=== PATIENT | female | born 1970 | race American Indian/Alaskan Native ===

== ENCOUNTER 2020-12-19 03:35 | Emergency (ER) | payer BC ==
[2020-12-19 03:46] VITALS: BP 151/91
[2020-12-19] MEDS ORDERED: KETOROLAC 60 MG/2 ML INJ IM ONE (04:18)
[2020-12-19] MEDS ORDERED: oxyCODONE /ACETAMINOPHEN 5-325MG TAB PO ONE (04:18)
--- NOTE | 2020-12-19 04:49 | XRay Report ---
LUMBAR SPINE 2 VIEWS INDICATION: Right lower back pain with radiculopathy. No known injury. COMPARISON: No relevant prior imaging study available. FINDINGS: VERTEBRAE: No acute fracture. Normal alignment. DISC SPACES: Multilevel mild discogenic degenerative changes are present. FACET JOINTS: There is bilateral facet hypertrophy at L4-L5. No other significant abnormality. SOFT TISSUES: No significant abnormality. ADDITIONAL FINDINGS: No additional significant findings. IMPRESSION: 1. No acute findings. 2. Mild lumbar spondylosis. Signer Name: Dawit Cantu MD Signed: 12/19/2020 4:45 AM Workstation Name: [id number]
--- NOTE | 2020-12-19 05:03 | Emergency Department Report ---
ED Back Pain/Injury HPI - General Chief Complaint: Back Pain/Injury Stated Complaint: RT LEG PAIN;BACK PAIN Time Seen by Provider: 12/19/20 04:16 Source: patient, EMS Limitations: No Limitations - History of Present Illness Initial Comments: Patient will return from a trip mention she developed some discomfort while she was on the trip doing some walking excessive rides noting a sharp pain that started in her back and radiated to her buttocks. Since returning to to [place] the pain has grown more stiff and she is further down her leg and increasing in intensity history she decided to come to emergency department to have it evaluated MD Complaint: back pain -: Gradual, days(s) (5) Similar Symptoms Previously: No Severity: mild, moderate Quality: sharp, stabbing Consistency: constant Improves With: immobilization Worsens With: movement, sitting upright Associated Symptoms: denies: chest pain, difficulty walking, cough, difficulty urinating, incontinence, fever/chills, constipation, abdominal pain, seizure, shortness of breath, syncope - Related Data Previous Rx's Medication Instructions Recorded Last Taken Type Ketorolac [Toradol] 10 mg PO Q6H PRN #14 tablet 12/19/20 Unknown Rx methOCARBAMOL [Robaxin TAB] 750 mg PO Q8H #14 tablet 12/19/20 Unknown Rx Allergies Allergy/AdvReac Type Severity Reaction Status Date / Time No Known Allergies Allergy Unverified 12/19/20 03:38 ED Review of Systems ROS: Stated complaint: RT LEG PAIN;BACK PAIN Other details as noted in HPI Comment: All other systems reviewed and negative ED Past Medical Hx - Past Medical History Previous Medical History?: No - Social History Smoking Status: Current Every Day Smoker - Medications Home Medications: Home Medications Medication Instructions Recorded Confirmed Last Taken Type Ketorolac [Toradol] 10 mg PO Q6H PRN #14 tablet 12/19/20 Unknown Rx methOCARBAMOL [Robaxin TAB] 750 mg PO Q8H #14 tablet 12/19/20 Unknown Rx ED Physical Exam - General Limitations: No Limitations General appearance: alert, in no apparent distress - Head Head exam: Present: atraumatic, normocephalic - Eye Eye exam: Present: normal appearance - ENT ENT exam: Present: mucous membranes moist - Neck Neck exam: Present: normal inspection - Respiratory Respiratory exam: Present: normal lung sounds bilaterally. Absent: respiratory distress - Cardiovascular Cardiovascular Exam: Present: regular rate, normal rhythm. Absent: systolic murmur, diastolic murmur, rubs, gallop - GI/Abdominal GI/Abdominal exam: Present: soft, normal bowel sounds - Extremities Exam Extremities exam: Present: normal inspection - Back Exam Back exam: Present: normal inspection, paraspinal tenderness, vertebral tenderness. Absent: tenderness (Tender to her right sacroiliac joint with palpation. Seated straight leg raise is is positive as well.), CVA tenderness (R), CVA tenderness (L) - Neurological Exam Neurological exam: Present: alert, oriented X3 - Psychiatric Psychiatric exam: Present: normal affect, normal mood - Skin Skin exam: Present: warm, dry, intact, normal color. Absent: rash ED Course Vital Signs 12/19/20 03:42 Temperature 98.4 F Pulse Rate 93 H Respiratory 18 Rate Blood Pressure 151/91 O2 Sat by Pulse 99 Oximetry ED Medical Decision Making - Radiology Data Radiology results: report reviewed [address] [place] [address] XRay Report Signed Patient: TIA HERNANDEZ MR#: [id number] : 1970 Acct:[id number] Age/Sex: 50 / F ADM Date: 12/19/20 Loc: ED Attending Dr: Ordering Physician: MARTINEZ RIZZO Date of Service: 12/19/20 Procedure(s): XR spine lumbosacral 2-3V Accession Number(s): [id number] cc: MARTINEZ RIZZO Fluoro Time In Minutes: LUMBAR SPINE 2 VIEWS INDICATION: Right lower back pain with radiculopathy. No known injury. COMPARISON: No relevant prior imaging study available. FINDINGS: VERTEBRAE: No acute fracture. Normal alignment. DISC SPACES: Multilevel mild discogenic degenerative changes are present. FACET JOINTS: There is bilateral facet hypertrophy at L4-L5. No other significant abnormality. SOFT TISSUES: No significant abnormality. ADDITIONAL FINDINGS: No additional significant findings. IMPRESSION: 1. No acute findings. 2. Mild lumbar spondylosis. Signer Name: Dawit Cantu MD Signed: 12/19/2020 4:45 AM Workstation Name: [id number] Transcribed By: [place] Dictated By: Dawit Cantu MD Electronically Authenticated By: Dawit Cantu MD Signed Date/Time: 12/19/20444 DD/ 3 TD/TT: Print Cancel - Medical Decision Making Pt presents the emergency department complaining of back pain most consistent with back Pain Most Consistent with Strain/Contusion. Differential Diagnosis Includes Lumbar Go Versus Musculoskeletal Spasm, Strain Versus Sciatica. No Back Pain Red Flags on History or Physical. Presentation Not Consistent with Malignancy, Fracture, Cauda Equina, Abdominal Aortic Aneurysm, Viscus Perforation, Pulmonary Embolism, Renal Colic, Pyelonephritis. Patient reports no B symptoms, trauma trauma, incontinence, saddle anesthesia, distal weakness, urinary symptoms and is a febrile. Critical care attestation.: If time is entered above; I have spent that time in minutes in the direct care of this critically ill patient, excluding procedure time. ED Disposition Clinical Impression: Lumbar back pain with radiculopathy affecting right lower extremity Disposition: TO HOME OR SELFCARE Is pt being admited?: No Does the pt Need Aspirin: No Condition: Stable Instructions: Radicular Pain, Back Exercises, Ailo-un-Dkcu Prescriptions: methOCARBAMOL [Robaxin TAB] 750 mg PO Q8H #14 tablet Ketorolac [Toradol] 10 mg PO Q6H PRN #14 tablet PRN Reason: Pain Referrals: PRIMARY MD LORI [Primary Care Provider] - 3-5 Days [facility] [place] [Provider Group] - 3-5 Days ELEONORA AQUINO MD [Staff Physician] - 3-5 Days
[2020-12-19] MEDS ORDERED: predniSONE 20 MG TAB PO ONE (05:27)
== END 2020-12-19 05:40 | disposition home or self-care (01) ==
LOC: ED 03:35
DX: M54.16 Radiculopathy, lumbar region (principal); M79.604 Pain in right leg; F17.200 Nicotine dependence, unspecified, uncomplicated; Z79.899 Other long term (current) drug therapy
CPT/HCPCS: 72100; 96372; 99284; J1885; J7512